=== PATIENT | female | born 1950 | race Caucasian/White ===

== ENCOUNTER 2023-09-04 13:50 | Emergency (ER) | payer OTHER, SELFPAY ==
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
[2023-09-04 13:57] VITALS: BP 128/62; BP 136/72; PULSE 72; PULSE 98; RESP 19; TEMP 36.6; O2SAT 97; O2SAT 99; BMI 31.0
[2023-09-04 14:09] VITALS: BP 122/63; PULSE 71; RESP 18; TEMP 35.8; O2SAT 96
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
[2023-09-04] MEDS: Acetaminophen 325 MG TABLET 650 MG PO (15:30)
[2023-09-04 15:39] VITALS: BP 139/75; PULSE 76; RESP 17; TEMP 36.1; O2SAT 98
[2023-09-04 16:31] VITALS: BP 139/75; PULSE 76; RESP 17; TEMP 36.1; O2SAT 98
== END 2023-09-04 16:31 | disposition home or self-care (01) ==
PROVIDERS: Emergency Provider Emergency Medicine
DX: S16.1XXA Strain of muscle, fascia and tendon at neck level, initial encounter (principal); S13.4XXA Sprain of ligaments of cervical spine, initial encounter; R07.89 Other chest pain; R51.9 Headache, unspecified; M54.2 Cervicalgia; V43.62XA Car passenger injured in collision with other type car in traffic accident, initial encounter; Y93.9 Activity, unspecified; Y92.410 Unspecified street and highway as the place of occurrence of the external cause; Y99.8 Other external cause status
CPT/HCPCS: 70450; 72070; 72125; 99283